=== PATIENT | female | born 1980 | race Caucasian/White ===

== ENCOUNTER 2017-03-20 19:10 | Inpatient (IN) | payer BC ==
[2017-03-20 20:36] LABS: BASOPHIL 0.4 % (0-2.0); EOSINOPHIL 1.3 % (0-4.5); MCH 21.7 pg (25.7-33.7); MCHC 30.8 g/dl (32.0-36.0); MEAN CELL VOLUME 70.4 fl (80-96); MEAN PLT VOLUME 8.2 fl (7.5-11.1); NEUTROPHILS 78.5 % (42.8-82.8); PLATELET COUNT 193 K/MM3 (134-434); RDW 20.1 % (11.6-15.6); WHITE BLOOD COUNT 11.9 K/mm3 (4.0-10.0)
[2017-03-20] MEDS ORDERED: DINOPROSTONE 10 MG VAGINAL SUPPOSITORY VG ONE (20:54)
[2017-03-20] MEDS ORDERED: DEXTROSE 5%-LACTATED RINGERS 1,000 ML IV SCH (21:00)
[2017-03-20 21:06] LABS: ANION GAP 10 (8-16); CALCIUM 8.4 mg/dL (8.5-10.1); CO2 23 mmol/L (21-32); CREATININE 0.4 mg/dL (0.55-1.02); GLUCOSE,RANDOM 103 mg/dL (74-106)
[2017-03-20 21:23] LABS: INR 0.9 (0.82-1.09); PROTHROMBIN TIME (PATIENT) 10.2 SEC (9.98-11.88)
[2017-03-20 21:25] LABS: ACTIVATED PTT 25.5 SECONDS (26.9-34.4)
[2017-03-20 21:39] VITALS: BMI 29.4
[2017-03-20 22:43] LABS: ANISOCYTOSIS 1+; HYPOCHROMIA 2+; POLYCHROMASIA 1+
--- NOTE | 2017-03-20 23:03 | HP ---
Past Medical History - Primary Care Physician PCP:: Mic Wright - Admission Chief Complaint: 37yo P1 with at EGA 41w1d admitted for labor induction. 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: Alzheimer's, CVA, Dementia, Migraine, Multiple Sclerosis, Peripheral Neuropathy, Parkinson's, Seizure, Syncope, TIA, Vertigo, Other Cardiovascular: No: AFIB, Aneurysm, Aortic Insufficiency, Aortic Stenosis, CAD, CHF, Deep Vein Thrombosis, HTN, Hyperlipdemia, [place], Mitral Insufficiency, Mitral Stenosis, Murmur, Pulmonary Hypertension, Other Pulmonary: Yes: Asthma Gastrointestinal: No: Ascites, Cancer, Constipation, Crohn's Disease, Diverticulitis, Diverticulosis, Esophageal Varices, Gastritis, GERD, GI Bleed, Hemorrhoids, Hiatal Hernia, Inflamatory Bowel Disease, Irritable Bowel Disease, Pancreatitis, Peptic Ulcer Disease, Ulcerative Colitis, Other Hepatobiliary: No: Cirrhosis, Cholelithiasis, Cholecystitis, Choledocholithiasis , Hepatitis A, Hepatitis B, Hepatitis C, Other Renal/: No: Renal Failure, Renal Inusuff, BPH, Cancer, Hematuria, Hemodialysis , Neurogenic Bladder, Renal Calculi, UTI, Other Reproductive: Yes: Other (cervical dysplasia, LEEP) ...: 2 ...Para: 1 ...Term: 1 ...: 0 ...Spon : 0 ...Induced : 0 ...Multiple Gestation: 0 ...LMP: 06/05/16 ... Weeks Gestation by Dates: 40.5 ...EDC by Dates: 03/15/17 ...EDC by Sono: 03/12/17 Heme/Onc: Yes: Anemia Infectious Disease: No: AIDS, C-Diff, Herpes Zoster, HIV, MRSA, STD's, Tuberculosis, VREF, Other Psych: No: Addictions, Anxiety, Bipolar, Depression, Panic, Psychosis, Schizophrenia, Other Musculoskeletal: No: Bursitis, Chronic low back pain, Hemiparesis, Hemiplegia, Osteoarthritis, Paraplegia, Other Rheumatology: No: Fibromyalgia, Gout, Lupus, Rheumatoid Arthritis, Sarcoidosis, Vasculitis, Other ENT: No: Allergic Rhinitis, Sinusitis, Other Endocrine: Yes: Hypothyroidism Dermatology: No: Basal Cell, Cellulitis, Eczema, Melanoma, Psoriasis, Squamous Cell, Other - Past Surgical History Hx Myomectomy: No Hx Transabdominal Cerclage: No - Smoking History Smoking history: Never smoked Have you smoked in the past 12 months: No - Alcohol/Substance Use Hx Alcohol Use: No History of Substance Use: reports: None - Social History Usual Living Arrangement: Yes: With Spouse, With Child ADL: Independent 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 History of Recent Travel: No Home Medications - Allergies Allergies/Adverse Reactions: Allergies Allergy/AdvReac Type Severity Reaction Status Date / Time Penicillins Allergy Severe Difficulty Verified 08/14/14 12:01 Breathing seasonal Allergy Uncoded 08/14/14 12:02 - Home Medications Home Medications: Ambulatory Orders Desogestrel-Ethinyl Estradiol [Reclipsen] 1 each PO HS 11/27/12 Montelukast Na [Singulair] 10 mg PO HS 11/27/12 Acetaminophen [Tylenol .Regular Strength -] 325 mg PO Q3H PRN #2 tablet Benzocaine Ointment [Americaine Ointment -] 1 applic TP PRN PRN #1 tube Benzocaine [Americaine 20% [place] -] 1 spray TP PRN PRN #1 spraybtl 08/16/14 Ibuprofen [Motrin -] 200 mg PO Q4H PRN #3 tablet 08/16/14 Vitamins (Sjr) - 1 tab PO DAILY #1 tablet 08/16/14 Family Disease History - Family Disease History Family Disease History: Diabetes: Father, Other: Grandparent (Colon ca) Review of Systems - Review of Systems Constitutional: reports: No Symptoms Eyes: reports: No Symptoms HENT: reports: No Symptoms Neck: reports: No Symptoms Cardiovascular: reports: No Symptoms Respiratory: reports: No Symptoms Gastrointestinal: reports: No Symptoms Genitourinary: reports: No Symptoms Breasts: reports: No Symptoms Reported Musculoskeletal: reports: No Symptoms Integumentary: reports: No Symptoms Neurological: reports: No Symptoms Endocrine: reports: No Symptoms Hematology/Lymphatic: reports: No Symptoms Psychiatric: reports: No Symptoms Pain Intensity: 0 Physical Exam - Maternity Vital Signs: Vital Signs Temperature 98.1 F 03/20/17 19:30 Pulse Rate 102 H 03/20/17 19:30 Respiratory Rate 20 03/20/17 19:30 Blood Pressure 110/70 03/20/17 19:30 O2 Sat by Pulse Oximetry (%) Constitutional: Yes: Well Nourished, No Distress, Calm Eyes: Yes: WNL, Conjunctiva Clear, EOM Intact HENT: Yes: WNL, Atraumatic, Normocephalic Neck: Yes: WNL, Supple, Trachea Midline Cardiovascular: Yes: WNL, Regular Rate and Rhythm Lungs: Clear to auscultation - Abdominal Exam/OB Fundal Height: 40 Number of Fetuses: Single Presentation: Vertex Contractions: Yes Regularity: Irregular Intensity: Unaware Monitor Mode: External Heart Rate (range): 135 Heart Rate Location: Midline Category: I Accelerations: Uniform Decelerations: None - Vaginal Exam/OB Vaginal Bleediing: No Speculum Exam: No Dilatation (cm): 1 Effacement (%): 60 Amniotic Membrane Status: Intact Presentation: Vertex/Position Station: -2 (Adequate pelvimetry) - Physical Exam Musculoskeletal: Yes: WNL Extremities: Yes: WNL Edema: No Integumentary: Yes: WNL Deep Tendon Reflex Grade: Normal +2 ...Motor Strength: WNL Psychiatric: Yes: WNL - Labs Lab Results: CBC, BMP 03/20/17 20:25 03/20/17 20:25 Hemorrhage Risk Assessment - Risk Factors Medium Risk Factors: Yes: None High Risk Factors: Yes: None Risk Score: 1 Risk Level: Medium Risk Imaging - Results Ultrasound: Report Reviewed Assessment/Plan 37yo P1 with at EGA 41w1d admitted for labor induction. Fetus with Category I tracing. Cervix is unfavorable. Plan to proceed with Cervidil for cervical ripening. We had a long discussion re: risks, benefits, and alternatives of labor induction. I explained the options of expectant management awaiting spontaneous labor, induction of labor, and elective section. The risks of uterine tachysystole, distress, uterine rupture, need for emergency C/S, hemorrhage, infection, scarring, etc. were discussed. We also discussed the risks of meconium aspiration, shoulder dystocia , and anesthesia options.
[2017-03-20] MEDS ORDERED: BUTORPHANOL TARTRATE 1 MG/ML VIAL IVPB ONE (23:12)
[2017-03-20] MEDS ORDERED: PROMETHAZINE HCL 25 MG/1 ML VIAL IVPB ONE (23:12)
[2017-03-21] MEDS ORDERED: OXYTOCIN 15 UNITS/ LR 250 ML 15 UNIT/250 ML INFUS.BAG IVPB SCH (02:00)
[2017-03-21] MEDS: ELECTROLYTE-148 SOLN 1,000 ML IV SCH ×2 (03:00→04:45)
[2017-03-21] MEDS ORDERED: FENTANYL/BUPIVACAINE/NS/PF - PCEA - 50 ML DISP.SYRIN EP SCH (04:45)
--- NOTE | 2017-03-21 05:54 | PN ---
Ante-Partal Exam - Subjective Subjective: Pt is s/p epidural. Vital Signs: Vital Signs Temperature 97.7 F 03/21/17 04:00 Pulse Rate 73 03/21/17 05:15 Respiratory Rate 18 03/21/17 05:15 Blood Pressure 98/60 03/21/17 05:15 O2 Sat by Pulse Oximetry (%) 98 03/21/17 04:30 Bleeding: No Headache: No Visual changes: No Right upper quadrant pain: No Pain (scale 1-10): 0 - Contractions Contractions: Yes Regularity: Irregular Intensity: Unaware Monitor Mode: External - Exam during Labor Heart Rate: 140 Variability: Moderate Heart Rate Location: Midline Category: II Monitor Accelerations: Present Monitor Decelerations: Early Exam: Vaginal Dilatation (cm): 4 Effacement (%): 90 Amniotic Membrane Status: Ruptured (AROM) Amniotic Fluid: Clear Presentation: Vertex Station: 0 Remarks: Moderate variability - Intrapartum Hemorrhage Risk Medium Risk Factors: None High Risk Factors: None Risk Score: 0 Risk Level: Low Risk - Assessment/Plan Assessment/Plan: 37yo P1 induced for postdates. The cervidil was removed and pitocin was started. Now pt is s/p epidural and with Category II tracing. The pitocin was stopped and AROM done. Pt with some early decels. Plan to monitor fetus.
--- NOTE | 2017-03-21 06:28 | PN ---
Ante-Partal Exam - Subjective Subjective: Minimal variability on FHT noted. Vital Signs: Vital Signs Temperature 97.7 F 03/21/17 04:00 Pulse Rate 100 H 03/21/17 05:45 Respiratory Rate 18 03/21/17 05:45 Blood Pressure 96/62 03/21/17 05:45 O2 Sat by Pulse Oximetry (%) 98 03/21/17 04:30 Bleeding: No Headache: No Visual changes: No Right upper quadrant pain: No Pain (scale 1-10): 0 - Contractions Contractions: Yes Regularity: Irregular Intensity: Mild/Mod Monitor Mode: External - Exam during Labor Heart Rate: 135 Variability: Minimal Heart Rate Location: Midline Category: II Monitor Accelerations: Absent Monitor Decelerations: Early (occasional) Amniotic Fluid: Clear Presentation: Vertex - Intrapartum Hemorrhage Risk Medium Risk Factors: None High Risk Factors: None Risk Score: 0 Risk Level: Low Risk - Assessment/Plan Assessment/Plan: Category II tracing. Pt has been getting O2 by mask. Position was changed. Pitocin has been off. Will continue to monitor.
[2017-03-21] MEDS: OXYTOCIN 20 UNITS in 0.9% NS 20 UNIT/1,000 ML INFUS.BAG IV SCH ×2 (08:45→11:40)
[2017-03-21] MEDS ORDERED: WITCH HAZEL 50% (TUCKS) 40 PAD/JAR PAD TP PRN (09:03)
[2017-03-21] MEDS ORDERED: BENZOCAINE 20% 57 GM BOTTLE TP PRN (09:03)
[2017-03-21] MEDS ORDERED: BENZOCAINE 28 GM HEMORRHOIDAL OINTMENT TP PRN (09:03)
[2017-03-21] MEDS ORDERED: METHYLERGONOVINE MALEATE 0.2 MG/1 ML AMP IM PRN (09:03)
[2017-03-21] MEDS ORDERED: BISACODYL 10 MG SUPP.RECT RC PRN (09:03)
[2017-03-21] MEDS: oxyCODONE HCL 5 MG TABLET PO PRN ×3 (09:25→21:29)
[2017-03-21] MEDS: ACETAMINOPHEN 325 MG TABLET (FP) PO PRN (09:25)
[2017-03-21] MEDS ORDERED: LEVOTHYROXINE NA 75 MCG TABLET (FP) PO SCH (10:00)
[2017-03-21] MEDS ORDERED: LORATADINE 10 MG TABLET PO SCH (10:00)
[2017-03-21] MEDS: PRENATAL VITAMINS W/ FOLIC ACID TABLET (FP) PO SCH (13:45)
[2017-03-21] MEDS: IBUPROFEN 600 MG TABLET (FP) PO PRN (14:44)
[2017-03-21] MEDS: LORATADINE 10 MG TABLET PO SCH (21:27)
[2017-03-21] MEDS: MONTELUKAST NA 10 MG TABLET PO SCH (21:27)
[2017-03-22] MEDS: ACETAMINOPHEN 325 MG TABLET (FP) PO PRN ×4 (02:38→22:58)
[2017-03-22] MEDS: IBUPROFEN 600 MG TABLET (FP) PO PRN ×4 (02:40→22:57)
[2017-03-22] MEDS: LEVOTHYROXINE NA 75 MCG TABLET (FP) PO SCH (06:17)
[2017-03-22] MEDS: PRENATAL VITAMINS W/ FOLIC ACID TABLET (FP) PO SCH (09:04)
[2017-03-22 10:05] LABS: BASOPHIL 0.3 % (0-2.0); EOSINOPHIL 1.2 % (0-4.5); MCH 22.2 pg (25.7-33.7); MCHC 30.6 g/dl (32.0-36.0); MEAN CELL VOLUME 72.6 fl (80-96); MEAN PLT VOLUME 8.1 fl (7.5-11.1); NEUTROPHILS 82.8 % (42.8-82.8); PLATELET COUNT 156 K/MM3 (134-434); RDW 20.6 % (11.6-15.6); WHITE BLOOD COUNT 13.4 K/mm3 (4.0-10.0)
[2017-03-22 12:30] LABS: ANISOCYTOSIS 2+; MICROCYTOSIS 2+; POIKILOCYTOSIS 1+; TEAR DROP CELLS 1+
--- NOTE | 2017-03-22 16:41 | PN ---
Post Progress Note - Subjective Subjective: No complaints Post Day: 1 Type of Delivery: Vital Signs: Vital Signs Temperature 98.9 F 03/22/17 09:31 Pulse Rate 76 03/22/17 09:31 Respiratory Rate 20 03/22/17 09:31 Blood Pressure 90/56 03/22/17 09:31 O2 Sat by Pulse Oximetry (%) 100 03/21/17 09:30 Breast Exam: Yes: Soft Uterus: Yes: Fundus Firm, Fundus below umbilicus, Non-tender Abdomen/GI: Yes: Abdomen soft, Passing flatus, Tolerating PO Lochia: Yes: Rubra Lochia, amount: Small Extremities: Yes: Calves non-tender Perineum: Yes: Episiotomy (intact repair) Activity: Ambulating - Labs Labs: CBC WBC 13.4 K/mm3 (4.0-10.0) H 03/22/17 09:40 RBC 3.69 M/mm3 (3.60-5.2) 03/22/17 09:40 Hgb 8.2 GM/dL (10.7-15.3) L D 03/22/17 09:40 Hct 26.8 % (32.4-45.2) L 03/22/17 09:40 MCV 72.6 fl (80-96) L 03/22/17 09:40 MCH 22.2 pg (25.7-33.7) L 03/22/17 09:40 MCHC 30.6 g/dl (32.0-36.0) L 03/22/17 09:40 RDW 20.6 % (11.6-15.6) H 03/22/17 09:40 Plt Count 156 K/MM3 (134-434) 03/22/17 09:40 MPV 8.1 fl (7.5-11.1) 03/22/17 09:40 Neutrophils % 82.8 % (42.8-82.8) 03/22/17 09:40 Lymphocytes % 10.3 % (8-40) 03/22/17 09:40 Monocytes % 5.4 % (3.8-10.2) 03/22/17 09:40 Eosinophils % 1.2 % (0-4.5) 03/22/17 09:40 Basophils % 0.3 % (0-2.0) 03/22/17 09:40 Hypochromia 2+ 03/20/17 20:25 Polychromasia 1+ 03/20/17 20:25 Poikilocytosis 1+ 03/22/17 09:40 Anisocytosis 2+ 03/22/17 09:40 Microcytosis 2+ 03/22/17 09:40 Tear Drop Cells 1+ 03/22/17 09:40 Assessment/Plan 37yo P2 s/p , doing well stable, afebrile. Asymptomatic for anemia care instructions reviewed. Continue routine care. Ambulation encouraged Discharge instruction reviewed.
--- NOTE | 2017-03-22 16:44 | DS ---
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 Signs: Vital Signs Temperature 98.9 F 03/22/17 09:31 Pulse Rate 76 03/22/17 09:31 Respiratory Rate 20 03/22/17 09:31 Blood Pressure 90/56 03/22/17 09:31 O2 Sat by Pulse Oximetry (%) 100 03/21/17 09:30 Constitutional: Yes: Well Nourished, No Distress, Calm Eyes: Yes: WNL, Conjunctiva Clear, EOM Intact HENT: Yes: WNL, Atraumatic, Normocephalic Neck: Yes: WNL, Supple, Trachea Midline Cardiovascular: Yes: WNL, Regular Rate and Rhythm Respiratory: Yes: WNL, Regular, CTA Bilaterally Gastrointestinal: Yes: WNL, Normal Bowel Sounds, Soft ...Rectal Exam: Yes: Deferred Renal/: Yes: WNL Internal Exam Deferred: Yes ....Post : Yes: Uterus firm, Uterus non-tender, Slight lochia rubra Breast(s): Yes: WNL Musculoskeletal: Yes: WNL Extremities: Yes: WNL Edema: No Integumentary: Yes: WNL Neurological: Yes: WNL, Alert, Oriented ...Motor Strength: WNL Psychiatric: Yes: WNL, Alert, Oriented Labs: CBC, BMP 03/22/17 09:40 03/20/17 20:25 Delivery - Delivery Vaginal Delivery: No Problems, Spontaneous Type of Anesthesia: Local, Epidural Episiotomy/Laceration: Midline, Perineal Extension/lac, 2nd degree EBL (cc): 300 Delivery, Single - Stages of Labor Date 1st Stage Initiatied: 03/20/17 Time 1st Stage Initiated: 23:30 Date 2nd Stage Initiated: 03/21/17 Time 2nd Stage Initiated: 07:50 Date of Delivery: 03/21/17 Time of Delivery: 08:29 Time Placenta Delivered: 08:45 Placenta: Yes: Spontaneous, Normal Configuration - Condition of Infant [place] 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 You may walk unlimited sally of and climb stairs. You may resume driving the car when you feel safe and comfortable behind the wheel. No sexual activity as instructed. Wound care If you have a bandage, leave it on, and keep dry for 48-72 hours. After that time discard the outer bandage. If they are tapes on the skin under the out of bandage leave them in place. They will peel off in the next 7 to 10 days. Do Not Peel them off. You may shower the day after surgery. If there are tapes present on the skin, you may shower over them. Diet There are no dietary restrictions. Eat healthy, high-fiber foods. Drink 6 to 8 glasses of liquid each day. This will assist in keeping your bowels are regular. Pain management You may take Tylenol or acetaminophen or Ibuprofen (for example, Motrin, Advil etc.) from my pain prescription medication is ordered should be taken as prescribed for moderate to severe pain. Call MD for any of the following: Severe pain not relieved by medication Fever of 101 or higher Excessive bleeding or drainage on dressing Inability to urinate Referrals: Mic Wright MD [Staff Physician] - Disposition: HOME - Home Medications Comprehensive Discharge Medication List: Ambulatory Orders Montelukast Na [Singulair] 10 mg PO HS 11/27/12 Vitamins (Sjr) - 1 tab PO DAILY #1 tablet 08/16/14 Loratadine [Claritin] 1 mg PO DAILY 03/20/17 Synthroid - 0.075 mg PO DAILY 03/20/17
[2017-03-22] MEDS: LORATADINE 10 MG TABLET PO SCH (21:34)
[2017-03-22] MEDS: MONTELUKAST NA 10 MG TABLET PO SCH (21:35)
[2017-03-22] MEDS ORDERED: SENNOSIDES/DOCUSATE COMBO (SENNA PLUS) TABLET (UD) PO PRN (22:00)
[2017-03-23] MEDS: ACETAMINOPHEN 325 MG TABLET (FP) PO PRN (03:04)
[2017-03-23] MEDS: IBUPROFEN 600 MG TABLET (FP) PO PRN (03:05)
[2017-03-23] MEDS: LEVOTHYROXINE NA 75 MCG TABLET (FP) PO SCH ×2 (06:32→06:34)
--- NOTE | 2017-03-23 07:26 | PN ---
Post Progress Note - Subjective Subjective: Patient without acute complaints. Reports tolerating oral intake without nausea or vomiting. Ambulating without dizziness. Denies fevers or chills. Pain well controlled with oral pain medication. without difficulty. Passing flatus. Post Day: 2 Type of Delivery: Vital Signs: Vital Signs Temperature 98.1 F 03/22/17 20:44 Pulse Rate 97 H 03/22/17 20:44 Respiratory Rate 20 03/22/17 20:44 Blood Pressure 115/71 03/22/17 20:44 O2 Sat by Pulse Oximetry (%) 100 03/21/17 09:30 Uterus: Yes: Fundus Firm, Fundus below umbilicus Abdomen/GI: Yes: Abdomen soft, Passing flatus, Tolerating PO. No: Tender Lochia: Yes: Serosa Lochia, amount: Small Extremities: Yes: Calves non-tender Activity: Ambulating - Labs Labs: CBC WBC 13.4 K/mm3 (4.0-10.0) H 03/22/17 09:40 RBC 3.69 M/mm3 (3.60-5.2) 03/22/17 09:40 Hgb 8.2 GM/dL (10.7-15.3) L D 03/22/17 09:40 Hct 26.8 % (32.4-45.2) L 03/22/17 09:40 MCV 72.6 fl (80-96) L 03/22/17 09:40 MCH 22.2 pg (25.7-33.7) L 03/22/17 09:40 MCHC 30.6 g/dl (32.0-36.0) L 03/22/17 09:40 RDW 20.6 % (11.6-15.6) H 03/22/17 09:40 Plt Count 156 K/MM3 (134-434) 03/22/17 09:40 MPV 8.1 fl (7.5-11.1) 03/22/17 09:40 Neutrophils % 82.8 % (42.8-82.8) 03/22/17 09:40 Lymphocytes % 10.3 % (8-40) 03/22/17 09:40 Monocytes % 5.4 % (3.8-10.2) 03/22/17 09:40 Eosinophils % 1.2 % (0-4.5) 03/22/17 09:40 Basophils % 0.3 % (0-2.0) 03/22/17 09:40 Hypochromia 2+ 03/20/17 20:25 Polychromasia 1+ 03/20/17 20:25 Poikilocytosis 1+ 03/22/17 09:40 Anisocytosis 2+ 03/22/17 09:40 Microcytosis 2+ 03/22/17 09:40 Tear Drop Cells 1+ 03/22/17 09:40 Assessment/Plan 37 yo PPD # 2 s/p , afebrile, vital signs stable, asymptomatic anemia, doing well 1. Patient stable for discharge home today. 2. Patient encouraged to contact MD for: - Severe pain not controlled by oral pain medication - Fevers or chills - Nausea or vomiting, intolerance of oral intake 3. Patient to follow up in office in4-6 weeks for visit
[2017-03-23 08:48] VITALS: BP 111/71; PULSE 86; TEMP 98.3
[2017-03-23] MEDS: PRENATAL VITAMINS W/ FOLIC ACID TABLET (FP) PO SCH (09:06)
== END 2017-03-23 12:00 | disposition home or self-care (01) | DRG 775 ==
LOC: JLDR 19:10 → J3W 03-21 11:45
PROVIDERS: ADMIT Obstetrics & Gynecology; ATTEND Obstetrics & Gynecology
PROC: 10E0XZZ Delivery of Products of Conception, External Approach (ICD-10-PCS; principal; 2017-03-21)
PROC: 0W8NXZZ Division of Female Perineum, External Approach (ICD-10-PCS; 2017-03-21)
DX: O48.0 Post-term pregnancy (principal); O76 Abnormality in fetal heart rate and rhythm complicating labor and delivery; Z37.0 Single live birth; Z3A.40 40 weeks gestation of pregnancy
CPT/HCPCS: 36415; 59409; 80048; 85025; 85610; 85730; 86593; 86850; 86900; 86901

== ENCOUNTER 2017-12-28 11:54 | Day surgery (SDC) | payer BC ==
[2017-12-22 14:29] VITALS: BMI 23.0
[2017-12-28] MEDS ORDERED: LIDOCAINE HCL/PF 2% SDV 5ML VIAL ONE (13:27)
[2017-12-28] MEDS ORDERED: KETOROLAC TROMETHAMINE 30 MG/1 ML VIAL ONE (13:27)
[2017-12-28] MEDS ORDERED: DEXAMETHASONE SOD PHOSPHATE 4 MG/1 ML VIAL ONE (13:27)
[2017-12-28] MEDS ORDERED: MIDAZOLAM HCL 2 MG/2 ML SINGLE DOSE VIAL ONE (13:30)
[2017-12-28] MEDS ORDERED: PROPOFOL 20 ML ONE (14:24)
[2017-12-28] MEDS ORDERED: ONDANSETRON 4 MG/2 ML VIAL IVPUSH PRN ×2 (14:41→14:51)
[2017-12-28] MEDS ORDERED: oxyCODONE HCL 5 MG TABLET PO PRN ×2 (14:41→14:51)
[2017-12-28] MEDS ORDERED: LACTATED RINGERS SOLUTION 1,000 ML IV SCH (14:45)
[2017-12-28] MEDS ORDERED: IBUPROFEN 600 MG TABLET (FP) PO PRN (14:51)
[2017-12-28] MEDS ORDERED: IBUPROFEN 800 MG/8 ML IJ IVPB PRN (14:51)
--- NOTE | 2017-12-28 14:56 | HP ---
History & Physical Update - History History: No Change - Physical Physical: No Change - Assessment Assessment: No Change - Plan Plan: No Change (H&P is unchanged from 1 week ago Consent signed and witnessed)
[2017-12-28] MEDS ORDERED: ELECTROLYTE-148 SOLN 1,000 ML IV SCH (15:00)
--- NOTE | 2017-12-28 15:00 | OP ---
Operative Note - Note: Operative Date: 12/28/17 Pre-Operative Diagnosis: 37yo P2 with metrorrhagia, Endometrial Polyp vs. Fibroid Operation: Hysteroscopy Myomectomy, Polypectomy, dialation Findings: 1. Multiple polyps Endometrial and cervical 2. One fibrous polyp with broad base Post-Operative Diagnosis: Same as Pre-op Surgeon: Hilaria Alberto Anesthesiologist/CHIEF DIETITIAN: Garcia Carvalho Anesthesia: MAC Estimated Blood Loss (mls): 0 Drains, Volume Out (mls): 20 Fluid Volume Replaced (mls): 500 Operative Report Dictated: Yes
[2017-12-28] MEDS ORDERED: ACETAMINOPHEN 325 MG TABLET (FP) ONE (16:12)
[2017-12-28] MEDS ORDERED: ONDANSETRON 4 MG/2 ML VIAL ONE (17:54)
[2017-12-28 19:55] VITALS: BP 96/60; PULSE 69; TEMP 97.8
--- NOTE | 2018-01-01 18:47 | OP ---
DATE OF OPERATION: 12/28/2017 PREOPERATIVE DIAGNOSES: A 37-year-old para 2 with metrorrhagia, endometrial polyp versus submucosal fibroid. OPERATION: Hysteroscopy, myomectomy, polypectomy, dilatation and curettage. FINDINGS: Multiple polyps, endometrial and cervical. One fibrous polyp was broad based. POSTOPERATIVE DIAGNOSIS: A 37-year-old para 2 with metrorrhagia, endometrial polyp versus submucosal fibroid. SURGEON: Hilaria Alberto MD ANESTHESIOLOGIST: Garcia Carvalho MD ANESTHESIA: MAC. DESCRIPTION OF OPERATIVE PROCEDURE: After assuring informed consent, patient was brought to the operating room where she was placed in dorsal lithotomy position. After assuring adequate anesthesia, perineum and vagina were prepped with Betadine and draped in a sterile fashion. A Symphion hysteroscope was assembled, white balanced, and primed. The cervix was visualized with [place] retractors and grasped with single-tooth tenaculum. It was gently dilated to accommodate size 6-mm hysteroscope. The above findings were visualized, multiple polyps; so, Symphion resectoscope was introduced through the hysteroscope, and all the polyps and fibrous polyp were resected off the base, leaving the cavity intact and free of additional material. Bilateral ostia visualized. All instruments subsequently removed from the uterus, cervix, and vagina. Excellent hemostasis was noted. Estimated blood loss was 0 mL. Patient put out 20 mL of urine at the beginning of the procedure and received 500 mL of IV fluids. Sponge and instrument count was correct x2. Patient was subsequently brought stable to the recovery room. Beti [id number] MTDD
--- NOTE | 2018-01-02 10:17 | PATH ---
Surgical Pathology Report Patient Name: SHILOH PRADO [facility]. Rec. #: [id number] /Age/Gender: 1980 (Age: 37) / F Account: [id number] Location: [facility] SURGICAL Taken: 12/28/2017 Received: 12/29/2017 Reported: 01/02/2018 Physicians: Hilaria Alberto M.D. Specimen(s) Received CERVICAL AND UTERINE POLYPS AND FIBROID Clinical History Cervical polyp Final Diagnosis 'CERVICAL'/ UTERINE POLYPS AND FIBROIDS, HYSTEROSCOPIC POLYPECTOMY AND MYOMECTOMY: FRAGMENTS OF ENDOMETRIAL POLYP, BENIGN CERVICAL TISSUE, AND SMOOTH MUSCLE FRAGMENTS SUGGESTIVE OF LEIOMYOMA. Electronically Signed Latasha Cárdenas M.D. Gross Description Received in formalin labeled "cervical and uterine polyps and fibroids," is a 1.9 x 1.8 x 0.2 cm aggregate of carter soft tissue fragments. The formalin is filtered and the specimen is entirely submitted in one cassette. 12/29/2017 [facility]29[facility]2017
== END 2017-12-28 19:58 | disposition home or self-care (01) ==
LOC: JASU-SURG 11:54
PROVIDERS: ATTEND Obstetrics & Gynecology
PROC: 0UB98ZX Excision of Uterus, Via Natural or Artificial Opening Endoscopic, Diagnostic (ICD-10-PCS; 2017-12-28)
PROC: 0UDB7ZX Extraction of Endometrium, Via Natural or Artificial Opening, Diagnostic (ICD-10-PCS; 2017-12-28)
PROC: 0UB98ZZ Excision of Uterus, Via Natural or Artificial Opening Endoscopic (ICD-10-PCS; principal; 2017-12-28 13:30)
PROC: 0UBC8ZX Excision of Cervix, Via Natural or Artificial Opening Endoscopic, Diagnostic (ICD-10-PCS; 2017-12-28 13:30)
DX: N84.0 Polyp of corpus uteri (principal); N84.1 Polyp of cervix uteri
CPT/HCPCS: 84703; 88305-TC; 94760

== ENCOUNTER 2018-01-04 08:21 | Emergency (ER) | payer BC ==
[2018-01-04 08:31] VITALS: BMI 23.0
--- NOTE | 2018-01-04 08:35 | PDOC ---
History of Present Illness - General Stated Complaint: POST OP PROBLEM Time Seen by Provider: 01/04/18 08:30 History Source: Patient, Old Records Exam Limitations: No Limitations - History of Present Illness Initial Comments: 01/04/18 08:35 CHIEF COMPLAINT: Vaginal bleeding HISTORY OF PRESENT ILLNESS: This is a 38-ndrb-msg-female (IVF pregnancies, vanishing twin), history of prior LEEP, with metrorrhagia and endometrial and cervical polyps POD #7 s/p polypectomy and D&C with Dr. Alberto who presents with heavy vaginal bleeding. She reports that initially after surgery, she had light bleeding as expected. This morning in the shower she began "gushing" blood with large clots and has since saturated 3 pads. She denies pelvic pain, back pain, fever, or any other symptoms. Vital signs on arrival are all within normal limits. REVIEW OF SYSTEMS: GENERAL/CONSTITUTIONAL: No fever or chills. No weakness. No weight change. HEAD, EYES, EARS, NOSE AND THROAT: No change in vision. No ear pain or discharge. No sore throat. CARDIOVASCULAR: No chest pain or palpitations. RESPIRATORY: No cough, wheezing, or shortness of breath. GASTROINTESTINAL: No nausea, vomiting, diarrhea or constipation. GENITOURINARY: See HPI. MUSCULOSKELETAL: No joint or muscle swelling or pain. No neck or back pain. SKIN: No rash or easy bruising. NEUROLOGIC: No headache, vertigo, loss of consciousness, or loss of sensation. PSYCHIATRIC: No depression or anxiety. ENDOCRINE: No increased thirst. No abnormal weight change. HEMATOLOGIC/LYMPHATIC: History of anemia in the context of heavy periods requiring iron infusions, easy bleeding, or history of blood clots. ALLERGIC/IMMUNOLOGIC: No hives or skin allergy. No latex allergy. PHYSICAL EXAM: GENERAL: The patient is awake, alert, and fully oriented, in no acute distress. HEAD: Normal with no signs of trauma. ENT: Pupils equal, round and reactive to light, extraocular movements intact, sclera anicteric, conjunctiva clear. Neck supple. LUNGS: Clear to auscultation bilaterally. Normal excursion. No respiratory distress or use of accessory muscles. CV: RRR, S1/S2, no MRG. Cap refill < 2 sec. ABDOMEN: Soft, non-distended, non-tender. EXTREMITIES: Normal range of motion, no edema. NEUROLOGICAL: Normal speech, normal gait. CN II-XII grossly intact. PSYCH: Normal mood, normal affect. SKIN: Warm, dry, normal turgor, no rashes or lesions noted. [employer]: Normal external exam. Large (fist-sized) clot removed from vaginal vault revealing no active bleeding. No CMT or adnexal tenderness. Past History - Past Medical History Allergies/Adverse Reactions: Allergies Allergy/AdvReac Type Severity Reaction Status Date / Time Penicillins Allergy Severe Difficulty Verified 01/04/18 08:29 Breathing seasonal Allergy Uncoded 01/04/18 08:29 Home Medications: Ambulatory Orders Montelukast Na [Singulair] 10 mg PO HS 11/27/12 Bcp 1 tab PO DAILY 12/22/17 Norgestimate-Ethinyl Estradiol [Sprintec 28 Day Tablet] 1 each PO ASDIR #56 tablet 01/04/18 Anemia: Yes Asthma: No Cancer: No Cardiac Disorders: No CVA: No COPD: No CHF: No Dementia: No Diabetes: No GI Disorders: No Disorders: No HTN: No Hypercholesterolemia: No Liver Disease: No Seizures: No Thyroid Disease: Yes (DURING ) - Surgical History Abdominal Surgery: No Appendectomy: No Cardiac Surgery: No Cholecystectomy: No Lung Surgery: No Neurologic Surgery: No Orthopedic Surgery: No - Suicide/Smoking/Psychosocial Hx Smoking History: Never smoked Have you smoked in the past 12 months: No Hx Alcohol Use: No Drug/Substance Use Hx: No Substance Use Type: None Hx Substance Use Treatment: No *Physical Exam - Vital Signs Last Vital Signs Temp Pulse Resp BP Pulse Ox 98.7 F 87 16 115/63 97 01/04/18 08:21 01/04/18 08:21 01/04/18 08:21 01/04/18 08:21 01/04/18 08:21 ED Treatment Course - LABORATORY CBC & Chemistry Diagram: 01/04/18 09:07 01/04/18 09:07 Medical Decision Making - Medical Decision Making 01/04/18 09:04 A/P: 37-year-old female with post-operative vaginal bleeding. -Labs including CBC, PT/INR, T&S, serum -Discussed with Dr. Wright: will await lab results and observe bleeding. Anticipate high-dose oral contraceptives to help control bleeding vs. admission for IV estrogen if bleeding remains brisk. *DC/Admit/Observation/Transfer Diagnosis at time of Disposition: Postoperative vaginal bleeding - Discharge Dispostion Disposition: HOME Condition at time of disposition: Stable Decision to Admit order: No - Prescriptions Prescriptions: Norgestimate-Ethinyl Estradiol [Sprintec 28 Day Tablet] 1 each PO ASDIR #56 tablet - Referrals Referrals: Mic Wright MD [Staff Physician] - 3 days - Patient Instructions Printed Discharge Instructions: DI for Vaginal Bleeding Additional Instructions: Stop taking your current control pill for now Instead, take Sprintec (sent to [facility]) in this way: -4 active pills for 4 days -3 active pills for 3 days -2 active pills for 2 days -1 daily until you finish the pack Days 22-28 in the pill pack are inactive, so when you get to these, start the next pack Follow up with Dr. Wright within 2-3 days Return here for bleeding that is becoming heavier, dizziness/lightheadness, fever, or any other concerning symptoms - Post Discharge Activity Forms/Work/School Notes: Back to Work
[2018-01-04 09:18] LABS: EOS % 1.3 % (0-4.5); HEMATOCRIT 38.1 % (32.4-45.2); HEMOGLOBIN 12.3 GM/dL (10.7-15.3); LYMPH % 21.4 % (8-40); MCH 25.9 pg (25.7-33.7); MCHC 32.2 g/dl (32.0-36.0); MEAN CELL VOLUME 80.4 fl (80-96); MEAN PLT VOLUME 9.5 fl (7.5-11.1); MONO % 8.5 % (3.8-10.2); NEUT % 67.8 % (42.8-82.8); PLATELET COUNT 200 K/MM3 (134-434); RBC 4.75 M/mm3 (3.60-5.2); RDW 15.7 % (11.6-15.6); WHITE BLOOD COUNT 4.9 K/mm3 (4.0-10.0)
[2018-01-04 09:30] LABS: INR 1.03 (0.83-1.09); PROTHROMBIN TIME (PATIENT) 11.6 SEC (9.7-13.0)
[2018-01-04 09:38] LABS: ANION GAP 9 MMOL/L (8-16); BLOOD UREA NITROGEN 18 mg/dL (7-18); CHLORIDE 107 mmol/L (98-107); CO2 26 mmol/L (21-32); CREATININE 0.6 mg/dL (0.55-1.02); GLUCOSE,RANDOM 78 mg/dL (74-106); POTASSIUM 4.2 mmol/L (3.5-5.1); SODIUM 142 mmol/L (136-145)
[2018-01-04 10:31] VITALS: BP 97/66; PULSE 82; TEMP 99
== END 2018-01-04 10:35 | disposition home or self-care (01) ==
LOC: JER 08:21
DX: N99.820 Postprocedural hemorrhage of a genitourinary system organ or structure following a genitourinary system procedure (principal); Z86.2 Personal history of diseases of the blood and blood-forming organs and certain disorders involving the immune mechanism
CPT/HCPCS: 36415; 80048; 84703; 85025; 85610; 86850; 86900; 86901; 99284-25